=== PATIENT | male | born 1985 | race Caucasian/White ===

== ENCOUNTER 2016-09-01 00:36 | Emergency (ER) | payer OTHER ==
[~2016-09-01] VITALS: Ht 180.3 cm; Wt 64.0 kg
[2016-09-01 00:43] VITALS: Ht 180.3 cm; Wt 64.0 kg
[2016-09-01] MEDS ORDERED: HYDROCODONE/APAP (5/325) TAB PO ONE (01:30)
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
[2016-09-01] MEDS ORDERED: CYCL-319 PO (02:47)
[2016-09-01] MEDS ORDERED: IBUP800T25 PO (02:47)
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
== END 2016-09-01 03:24 | disposition home or self-care (01) ==
LOC: FTE 00:36
DX: M25.551 Pain in right hip (principal); F17.210 Nicotine dependence, cigarettes, uncomplicated
CPT/HCPCS: 73500; Z7502; Z7610